=== PATIENT | male | born 1955 | race Caucasian/White ===

== ENCOUNTER 2021-03-03 22:56 | Emergency (ER) | payer MEDICARE, SELFPAY ==
[2021-03-03] VITALS (17 sets, daily range): BP systolic 168–227; BP diastolic 90–125; PULSE 96–105; RESP 16–35; TEMP 37.6; O2SAT 92–96; BMI 32.3
--- NOTE | 2021-03-03 22:58 | DI.CT.S_ITS ---
PROCEDURE: CT STROKE INDICATIONS: stroke x2.5 hours TECHNIQUE: Noncontrast 4.5 mm thick angled axial sections acquired from the foramen magnum to the vertex, with coronal reformats. For radiation dose reduction, the following was used: automated exposure control, adjustment of mA and/or kV according to patient size. COMPARISON: [facility], CT, CT ANGIO HEAD AND NECK, 03/03/2021, 23:01. FINDINGS: Image quality: Excellent. CSF spaces: Basal cisterns are patent. No extra-axial fluid collections. The ventricles are symmetric in size and shape. Brain: No intracranial bleeds or masses. There is cerebral volume loss for age, with resultant ventricular and sulcal prominence. There are periventricular and deep white matter chronic small vessel ischemic changes. There is intracranial internal carotid artery atherosclerosis. Skull and face: Calvarium and visualized facial bones appear intact, without suspicious lesions. Sinuses: Visualized sinuses and mastoids are clear. IMPRESSION: 1. No acute intracranial process. 2. Mild atrophy and chronic microvascular ischemic changes. The above findings are concordant with preliminary report. This study fulfills neurological imaging criteria for inclusion or exclusion of acute stroke therapies based on available published neurological guidelines. Dictated by: Marivel Lowry M.D. on 03/04/2021 at 9:49 Approved by: Marivel Lowry M.D. on 03/04/2021 at 9:50
--- NOTE | 2021-03-03 22:59 | DI.CT.S_ITS ---
PROCEDURE: CT ANGIO HEAD AND NECK INDICATIONS: stroke x2.5 hours TECHNIQUE: After the administration of intravenous contrast, 1 mm thick sections acquired from the aortic arch through the [place]. Post-contrast 4.5 mm thick sections then re-acquired from the foramen magnum to the vertex. 3-dimensional [id number] (MIP) and/or volume rendering reformats were acquired of the central intracranial vasculature and neck separately. COMPARISON: None. FINDINGS: Image quality: Excellent. BRAIN: The ventricular system and cortical sulci demonstrate atrophy, consistent for the patient's stated age. There are areas of hypodensity within the periventricular and subcortical white matter. There is no acute intra-or extra axial fluid collection. No acute hemorrhage, mass lesion or midline shift. Brainstem is unremarkable. Globes are symmetrical. Sinuses are aerated. Osseous structures are intact. HEAD CT ANGIOGRAPHY: Anterior circulation: There is moderate right supraclinoid internal carotid artery stenosis. The flow within the paired anterior cerebral arteries is normal and symmetric. The flow within the middle cerebral arteries is normal and symmetric. The anterior communicating artery is seen. No aneurysms are seen. Posterior circulation: Visualized portions of the vertebral arteries demonstrate normal caliber, and join to form a normal appearing basilar artery. Flow within the posterior cerebral arteries is normal and symmetric. No aneurysms are seen. NECK CT ANGIOGRAPHY: The origins of the left and right common, right internal and bilateral external carotid arteries demonstrate no areas of hemodynamically significant stenosis, vascular occlusion or aneurysmal dilation. There is at least 90% stenosis within the proximal left internal carotid artery approximately 1.6 cm from the danny. Origins of the left and right vertebral arteries demonstrate no areas of hemodynamically significant stenosis, vascular occlusion or aneurysmal dilation. Aortic arch demonstrates conventional anatomy. Limited, visualized portions of the subclavian vasculature are unremarkable. IMPRESSION: 1. No acute intracranial process. 2. Mild atrophy and chronic microvascular ischemic changes. 3. Moderate right supraclinoid internal carotid artery stenosis. 3. Greater than 90% stenosis within the proximal left internal carotid artery. The above findings are concordant with preliminary report. Any quantitative measurements of stenosis were performed using NASCET criteria. Dictated by: Marivel Lowry M.D. on 03/04/2021 at 9:50 Approved by: Marivel Lowry M.D. on 03/04/2021 at 10:07
--- NOTE | 2021-03-03 23:06 | ED_ITS ---
HPI - Neuro Symptoms/Deficit General Chief Complaint: Neuro Symptoms/Deficit Stated Complaint: code stroke Time Seen by Provider: 03/03/21 22:58 History of Present Illness HPI Narrative: 65-year-old male with history of hypertension presents with a chief complaint of sudden-onset right upper and lower extremity numbness and weakness that started about 830 this evening. He states that he 1st noticed it at 8:30 a.m. and then sat back down and waited about a half an hour at which point it was even worse, making it difficult for him to ambulate. At that point he called a friend to bring him here. On his arrival he was activated as a code stroke and taken directly to CT scan. He denies any history of stroke, recent traumas or injuries. He takes no blood thinners. He denies any recent surgeries or problems with bleeding. Related Data Allergies Allergy/AdvReac Type Severity Reaction Status Date / Time No Known Drug Allergies Allergy Verified 03/03/21 23:00 Review of Systems Review of Systems Narrative: GENERAL: Denies chills, fatigue, malaise, fever, sweats. HEENT: Denies sinus pain, ear pain, sore throat, difficulty swallowing, dizziness. RESPIRATORY: Denies dyspnea, cough, wheezing, hemoptysis, sputum. CARDIOVASCULAR: Denies chest pain, palpitations, orthopnea, edema, GASTROINTESTINAL: Denies nausea, vomiting, abdominal pain, diarrhea, constipation, melena. : Denies dysuria, frequency, incontinence, hematuria, urinary retention. MUSCULOSKELETAL: denies weakness, joint pain, or bony pain SKIN: Denies rash, skin lesions, or other NEUROLOGIC: See HPI PSYCHIATRIC: No concerning psychosocial issues. 12 point review of systems is negative except for those stated above Patient History Social History Smoking Status: Never smoker Exam Narrative Exam Narrative: GENERAL: [65] year old patient appears stated age. Well- developed patient, in mild distress. HEAD: Atraumatic. Normocephalic. EYES: Pupils equal round and reactive. Extraocular motions intact. No scleral icterus. No injection or drainage. ENT: Nose without bleeding, purulent drainage. Throat without erythema, tonsillar hypertrophy or exudate. Airway patent. NECK: Trachea midline. Non tender CARDIOVASCULAR: Regular rate and rhythm without murmurs, gallops, or rubs. RESPIRATORY: Clear to auscultation. Breath sounds equal bilaterally. No wheezes, rales, or rhonchi. GASTROINTESTINAL: Abdomen soft, non-tender, nondistended. EXTREMITIES: No edema or joint tenderness. BACK: Nontender without deformity or crepitance. No flank tenderness. NEURO: AOx3. SKIN: No rash or erythema of visible areas Initial Vital Signs Initial Vital Signs: Vital Signs Pulse Rate 97 H 03/03/21 22:56 Respiratory Rate 16 03/03/21 22:56 Scores NIH Stroke Scale Level of Conciousness: Alert, keenly responsive Ask month/age: Answers both questions correctly. Open/close eyes, close hand: Performs both tasks correctly Best gaze horizontal: Normal Visual alatorre: No visual loss Facial palsy: Normal symetrical movement Left arm drift: No drift for full 10 sec Right arm drift: Drifts down, not to bed Left leg drift: No drift for full 5 sec Right leg drift: Drifts down, not to bed Limb ataxia: Absent Sensory on face/arms/legs: Normal, no sensory loss Best language: No aphasia, normal Dysarthria: Mild to mod,some slurring Extinction or inattention: No abnormality Total NIH Stroke scale score: 3 Course Course Course Narrative: tPA (Tissue Plasminogen Activator) Dosing for Stroke Calculator from [employer] on 03/03/2021 All calculations should be rechecked by clinician prior to use RESULT SUMMARY: 9.0 mg Bolus dose, given IV over 1 min 81.0 mg Infusion, given IV over 60 mins 10.0 mg Waste, to be discarded INPUTS: Weight ?> 102 kg tPA Contraindications for Ischemic Stroke from [employer] on 03/03/2021 All calculations should be rechecked by clinician prior to use RESULT SUMMARY: Patient eligible for tPA. INPUTS: Age ?17 ?> 1 = Yes Clinical diagnosis of ischemic stroke causing neurological deficit ?> 1 = Yes Time of symptom onset ?> 1 = Yes Intracranial hemorrhage on CT ?> 0 = No Clinical presentation suggests subarachnoid hemorrhage ?> 0 = No Neurosurgery, head trauma, or stroke in past 3 months ?> 0 = No Uncontrolled hypertension (>185 mmHg SBP or >110 mmHg DBP) ?> 0 = No History of intracranial hemorrhage ?> 0 = No Known intracranial arteriovenous malformation, neoplasm, or aneurysm ?> 0 = No Active internal bleeding ?> 0 = No Suspected/confirmed endocarditis ?> 0 = No Known bleeding diathesis ?> 0 = No Abnormal blood glucose ( ?> 0 = No Only minor or rapidly improving stroke symptoms ?> 0 = No Major surgery or serious non-head trauma in the previous 14 days ?> 0 = No History of gastrointestinal or urinary tract hemorrhage within 21 days ?> 0 = No Seizure at stroke onset ?> 0 = No Recent arterial puncture at a noncompressible site ?> 0 = No Recent lumbar puncture ?> 0 = No Post myocardial infarction pericarditis ?> 0 = No ?> 0 = No Age >80 years ?> 0 = No History of prior stroke and diabetes ?> 0 = No Any active anticoagulant use (even with INR ?> 0 = No NIHSS >25 ?> 0 = No CT shows multilobar infarction (hypodensity >1/3 cerebral hemisphere) ?> 0 = No Additional Information: TPA - bolus 2350, drip 2351 Orders Ordered: ED Orders 03/03/21 22:58 CT Stroke Stat Urine Drug Screen, Rapid Stat EKG-12 Lead Stat 03/03/21 22:59 CT angio head and neck Stat 03/03/21 23:00 Basic Metabolic Panel Stat Complete Blood Count AUTO DIFF Stat Partial Thromboplastin Time Stat Prothrombin Time INR Stat Troponin & CK Cardiac Panel Stat 03/03/21 23:22 COVID19 - ADMIT ([employer] swab/PCR) Stat 03/04/21 01:05 Urinalysis and Microscopic Stat Sodium Chloride (Normal Saline 0.9%) 1,000 mls @ 150 mls/hr IV CONT JEFFY Last Infusion: 03/04/21 03:09 Dose: 0 mls/hr Documented by: Admin: 03/03/21 23:18 Dose: 150 mls/hr Documented by: WILMER Nicardipine HCl 25 mg/ Sodium (Chloride) 250 mls @ 50 mls/hr IV TITRATE JEFFY; Protocol Last Titration: 03/04/21 03:10 Dose: 0 mg/hr, 0 mls/hr Documented by: Titration: 03/04/21 02:31 Dose: 0 mg/hr, 0 mls/hr Documented by: Titration: 03/04/21 02:07 Dose: 3 mg/hr, 30 mls/hr Documented by: Titration: 03/04/21 02:03 Dose: 5 mg/hr, 50 mls/hr Documented by: Titration: 03/04/21 00:46 Dose: 0 mg/hr, 0 mls/hr Documented by: Admin: 03/03/21 23:39 Dose: 5 mg/hr, 50 mls/hr Documented by: YAKELIN Nicardipine HCl 25 mg/ Sodium (Chloride) 250 mls @ 50 mls/hr IV TITRATE JEFFY; Protocol Last Admin: 03/04/21 00:22 Dose: Not Given Documented by: WILMER Discontinued Medications Alteplase, Recombinant (Alteplase 100 Mg Vial) 9 mg IV NOW ONE Stop: 03/03/21 23:28 Last Admin: 03/03/21 23:50 Dose: 9 mg Documented by: WILMER Alteplase, Recombinant (Alteplase 100 Mg Vial) 81 mg IV NOW ONE Stop: 03/03/21 23:28 Last Admin: 03/03/21 23:51 Dose: 81 mg Documented by: WILMER Labetalol HCl (Labetalol 20 Mg/4 Ml Syringe) 20 mg IV NOW ONE Stop: 03/03/21 23:16 Last Admin: 03/03/21 23:18 Dose: 20 mg Documented by: WILMER Reevaluation(s) Reevaluation #1: currently contraindication to TPA given HTN. Labetalol ordered Time: 23:16 Reevaluation #2: Patient has been seen and evaluated at the bedside but tele stroke and sure the opinion that the patient is a candidate for tPA. While mixing tPA blood pressure is rechecked and is now back up to 213/109. Nicardipine drip at 5 ordered, tPA held currently Time: 23:39 Reevaluation #3: Nicardipine given at rate 5. BP 166/98. TPA given Additional Reevaluation(s): 0120 -patient able to stand to use urinal, states right leg noticeably stronger. No headache, blurred vision, nausea or vomiting Consultations Consultation #1: call to Tel[facility]. See his note for details. After performing his exam there was some improvement of symptoms. I suggested we stand the pat ient and get him to try to walk. He nearly fell over. Dr. Baer and I agree that patient would stand high likelihood of life altering neurologic deficit and recommend TPA. Patient consented. Consultation #2: [place] - no beds [place] - no beds [place] - no beds [facility] - no beds, wait listed [place] - no beds, wait listed [place] - no beds [place] - no beds 0050 - call to [facility]. Received call back from [facility] [place] [facility]. Stroke physician in agreement with our evaluation and treatment, requests transfer to /[facility] [place] Vital Signs Vital signs: Vital Signs - 8 hr 03/03/21 22:56 03/03/21 22:59 03/03/21 23:12 Temperature Pulse Rate 97 H 96 H 105 H Respiratory Rate 16 18 Blood Pressure 227/125 H Pulse Oximetry 96 94 03/03/21 23:18 03/03/21 23:21 03/03/21 23:22 Temperature 99.7 F H Pulse Rate 100 H 101 H Respiratory Rate 29 H Blood Pressure 227/125 H 217/112 H Pulse Oximetry 94 03/03/21 23:24 03/03/21 23:25 03/03/21 23:30 Temperature Pulse Rate 100 H 101 H 101 H Respiratory Rate 33 H 27 H 35 H Blood Pressure 178/91 H 173/93 H Pulse Oximetry 93 94 03/03/21 23:35 03/03/21 23:41 03/03/21 23:44 Temperature Pulse Rate 100 H 97 H 98 H Respiratory Rate 32 H 24 26 H Blood Pressure 218/109 H 190/104 H 185/91 H Pulse Oximetry 95 95 94 03/03/21 23:45 03/03/21 23:49 03/03/21 23:50 Temperature Pulse Rate 100 H 101 H 101 H Respiratory Rate 25 H 24 24 Blood Pressure 177/90 H 172/102 H 168/98 H Pulse Oximetry 94 94 94 03/03/21 23:54 03/03/21 23:59 03/04/21 00:00 Temperature 98.9 F Pulse Rate 101 H 102 H Respiratory Rate 28 H 20 Blood Pressure 169/100 H 170/98 H Pulse Oximetry 93 92 03/04/21 00:01 03/04/21 00:15 03/04/21 00:21 Temperature Pulse Rate 101 H 100 H 100 H Respiratory Rate 23 20 Blood Pressure 172/101 H 162/94 H 162/94 H Pulse Oximetry 92 92 03/04/21 00:30 03/04/21 00:45 08/11/21 01:00 Temperature Pulse Rate 100 H 99 H 98 H Respiratory Rate 23 22 24 Blood Pressure 156/88 H 155/88 H 153/90 H Pulse Oximetry 93 92 93 03/04/21 01:15 03/04/21 01:22 03/04/21 01:23 Temperature Pulse Rate 99 H 96 H 97 H Respiratory Rate 25 H 18 20 Blood Pressure 186/96 H 159/89 H 159/89 H Pulse Oximetry 94 94 94 03/04/21 01:30 03/04/21 01:45 03/04/21 02:00 Temperature Pulse Rate 95 H 96 H 97 H Respiratory Rate 20 22 22 Blood Pressure 160/89 H 183/104 H 187/108 H Pulse Oximetry 93 94 95 03/04/21 02:07 03/04/21 02:10 03/04/21 02:15 Temperature Pulse Rate 94 H 94 H 95 H Respiratory Rate 21 20 21 Blood Pressure 154/93 H 157/91 H 158/92 H Pulse Oximetry 93 93 93 03/04/21 02:20 03/04/21 02:25 03/04/21 02:30 Temperature Pulse Rate 96 H 97 H 95 H Respiratory Rate 22 22 21 Blood Pressure 155/88 H 154/93 H 138/88 Pulse Oximetry 92 93 91 03/04/21 02:35 03/04/21 02:40 03/04/21 02:45 Temperature Pulse Rate 94 H 93 H 93 H Respiratory Rate 22 20 21 Blood Pressure 130/83 141/89 H 142/90 H Pulse Oximetry 92 92 93 03/04/21 02:50 03/04/21 03:00 Temperature Pulse Rate 92 H 96 H Respiratory Rate 20 20 Blood Pressure 143/89 H 180/91 H Pulse Oximetry 93 95 MDM - Neuro Symptoms/Deficit Lab Data Result diagrams: 03/03/21 23:00 03/03/21 23:00 Labs: Lab Results 03/03/21 03/03/21 03/03/21 Range/Units 23:00 23:00 23:00 WBC 9.3 (4.5-11.0) X10^3/uL RBC 5.29 (4.5-5.9) X10^6/uL Hgb 16.1 (13.5-17.5) g/dL Hct 47.2 (41-53) % MCV 89.3 (80-100) fL MCH 30.5 (26-34) PG MCHC 34.1 (30-36) % RDW 12.9 (11.6-14.8) % Plt Count 200 (150-400) X10^3/uL Neut % (Auto) 57.2 (50-75) % Lymph % (Auto) 28.1 (25-40) % [place] % (Auto) 12.0 (3-14) % Eos % (Auto) 1.7 L (2-4) % Baso % (Auto) 1.0 (0-2) % Neut # (Auto) 5300 (3822-2788) /uL Lymph # (Auto) 2600 (5873-3520) /uL [place] # (Auto) 1100 H (0-900) /uL Eos # (Auto) 200 (0-450) /uL Baso # (Auto) 100 (0-100) /uL PT 11.6 (10.1-12.7) SECONDS INR 1.0 (0.9-1.3) APTT 37 H (26.4-36.2) SECONDS Sodium 138 (137-145) mmol/L Potassium 3.4 (3.4-5.1) mmol/L Chloride 101 (98-107) mmol/L Carbon Dioxide 25 (22-32) mmol/L BUN 16 (9-20) mg/dL Creatinine 0.98 (0.66-1.25) mg/dL Estimated GFR > 60.0 (>60) mL/min BUN/Creatinine Ratio 16.3 (6-22) Glucose 177 H (80-110) mg/dL Calcium 9.1 (8.4-10.2) mg/dL Total Creatine Kinase 123 (55-170) U/L CK-MB (CK-2) 1.45 (<2.37) ng/mL CK-MB (CK-2) Rel Index 1.2 L (1.5-5.0) % Troponin I < 0.012 (0.01-0.034) ng/mL Urine Color Urine Appearance Urine pH (4.5-8.0) Ur Specific [place] (1.000-1.035) Urine Protein (Negative) Urine Glucose (UA) (Negative) g/dL Urine Ketones (NEGATIVE) Urine Occult Blood (Negative) Urine Nitrate (Negative) Urine Bilirubin (NEGATIVE) Urine Urobilinogen (0.2) E.U./dL Ur Leukocyte Esterase (NEGATIVE) Urine RBC (0-5/HPF) Urine WBC (0-5/HPF) Urine Bacteria (None) Ur Culture Indicated? Micro UA Comment U Opiates 300ng/mL cut (Negative) Ur Oxycodone Screen (Negative) Urine Methadone Screen (Negative) Ur Barbiturates Screen (Negative) U Tricyclic Antidepress (Negative) Ur Phencyclidine Scrn (Negative) Ur Amphetamines Screen (Negative) U Methamphetamines Scrn (Negative) Ur MDMA Scrn (Ecstasy) (Negative) U Benzodiazepines Scrn (Negative) Urine Cocaine Screen (Negative) U Marijuana (THC) Screen (Negative) SARS-CoV-2 (PCR) (Negative) 03/03/21 03/04/21 03/04/21 Range/Units 23:22 01:05 01:05 WBC (4.5-11.0) X10^3/uL RBC (4.5-5.9) X10^6/uL Hgb (13.5-17.5) g/dL Hct (41-53) % MCV (80-100) fL MCH (26-34) PG MCHC (30-36) % RDW (11.6-14.8) % Plt Count (150-400) X10^3/uL Neut % (Auto) (50-75) % Lymph % (Auto) (25-40) % [place] % (Auto) (3-14) % Eos % (Auto) (2-4) % Baso % (Auto) (0-2) % Neut # (Auto) (4860-6737) /uL Lymph # (Auto) (2084-2164) /uL [place] # (Auto) (0-900) /uL Eos # (Auto) (0-450) /uL Baso # (Auto) (0-100) /uL PT (10.1-12.7) SECONDS INR (0.9-1.3) APTT (26.4-36.2) SECONDS Sodium (137-145) mmol/L Potassium (3.4-5.1) mmol/L Chloride (98-107) mmol/L Carbon Dioxide (22-32) mmol/L BUN (9-20) mg/dL Creatinine (0.66-1.25) mg/dL Estimated GFR (>60) mL/min BUN/Creatinine Ratio (6-22) Glucose (80-110) mg/dL Calcium (8.4-10.2) mg/dL Total Creatine Kinase (55-170) U/L CK-MB (CK-2) (<2.37) ng/mL CK-MB (CK-2) Rel Index (1.5-5.0) % Troponin I (0.01-0.034) ng/mL Urine Color Yellow Urine Appearance Clear Urine pH 7.0 (4.5-8.0) Ur Specific [place] <=1.005 (1.000-1.035) Urine Protein Negative (Negative) Urine Glucose (UA) Negative (Negative) g/dL Urine Ketones Negative (NEGATIVE) Urine Occult Blood Negative (Negative) Urine Nitrate Negative (Negative) Urine Bilirubin Negative (NEGATIVE) Urine Urobilinogen 0.2 (0.2) E.U./dL Ur Leukocyte Esterase Negative (NEGATIVE) Urine RBC None seen (0-5/HPF) Urine WBC None seen (0-5/HPF) Urine Bacteria None seen (None) Ur Culture Indicated? Cult not indicated Micro UA Comment Microscopic normal U Opiates 300ng/mL cut Negative (Negative) Ur Oxycodone Screen Negative (Negative) Urine Methadone Screen Negative (Negative) Ur Barbiturates Screen Negative (Negative) U Tricyclic Antidepress Negative (Negative) Ur Phencyclidine Scrn Negative (Negative) Ur Amphetamines Screen Negative (Negative) U Methamphetamines Scrn Negative (Negative) Ur MDMA Scrn (Ecstasy) Negative (Negative) U Benzodiazepines Scrn Negative (Negative) Urine Cocaine Screen Negative (Negative) U Marijuana (THC) Screen Negative (Negative) SARS-CoV-2 (PCR) Negative (Negative) Imaging Data CT scan - head: My Impression: NAP - no bleed Radiologist's Impression: No bleed CTA Head/Neck: Radiologist's Impression: 90% stenosis L carotid bulb Focal moderate right supraclinoid internal carotid artery stenosis Critical Care Time Critical Care Time Critical Care Time: Yes Total Critical Care Time: 60 Attestation: The high probability of a clinically significant, sudden or life threatening deterioration of the [Neuro/CV] system(s) required my full and direct attention, intervention and personal management. The aggregate critical care time was [60] minutes. This time is in addition to time spent performing reported procedures but includes the following: [x] Data Review and interpretation [x] Patient assessment and monitoring of vital signs [x] Documentation [x] Medication orders and management Discharge Plan [facility]arture [facility] Clinical Impression: Cerebrovascular accident, Received intravenous tissue plasminogen activator (tPA) in emergency department
[2021-03-03 23:08] LABS: Add Manual Diff / Slide Review NO; Basophils Absolute Auto 100 /uL (0-100); Eosinophils Absolute Auto 200 /uL (0-450); Eosinophils Percent Auto 1.7 % (2-4); Hematocrit 47.2 % (41-53); Hemoglobin 16.1 g/dL (13.5-17.5); Lymphocytes Absolute Auto 2600 /uL (1100-4500); Lymphocytes Percent Auto 28.1 % (25-40); Mean Corpuscular HGB Conc 34.1 % (30-36); Mean Corpuscular Hemoglobin 30.5 PG (26-34); Mean Corpuscular Volume 89.3 fL (80-100); Monocytes Absolute Auto 1100 /uL (0-900); Neutrophils Absolute Auto 5300 /uL (1500-7000); Neutrophils Percent Auto 57.2 % (50-75); Platelet Count 200 X10^3/uL (150-400); Red Blood Cell Count 5.29 X10^6/uL (4.5-5.9); Red Cell Distribution Width 12.9 % (11.6-14.8); White Blood Cell Count 9.3 X10^3/uL (4.5-11.0)
[2021-03-03 23:18] LABS: Prothrombin Time 11.6 SECONDS (10.1-12.7)
[2021-03-03] MEDS: LABETALOL 20 MG/4 ML SYRINGE IV (23:18)
[2021-03-03] MEDS: SODIUM CHLORIDE 0.9% 1,000 ML 150 ML IV (23:18)
[2021-03-03 23:20] LABS: PTT Partial Thromboplastin Tim 37 SECONDS (26.4-36.2)
[2021-03-03 23:22] LABS: BUN Creatinine Ratio 16.3 (6-22); Blood Urea Nitrogen 16 mg/dL (9-20); Calcium 9.1 mg/dL (8.4-10.2); Carbon Dioxide 25 mmol/L (22-32); Chloride 101 mmol/L (98-107); Creatine Kinase 123 U/L (55-170); Estimated Glomerular Filt Rate > 60.0 mL/min (>60); Glucose 177 mg/dL (80-110); Potassium 3.4 mmol/L (3.4-5.1); Sodium 138 mmol/L (137-145)
[2021-03-03 23:34] LABS: Troponin I < 0.012 ng/mL (0.01-0.034)
[2021-03-03 23:37] LABS: CKMB % Relative Index 1.2 % (1.5-5.0); Creatine Kinase MB 1.45 ng/mL (<2.37); HEMOLYSIS 23 (0-50)
[2021-03-03] MEDS: NICARDIPINE 25 MG in SODIUM CHLORIDE 0.9% 240 ML 50 ML IV (23:39)
--- NOTE | 2021-03-03 23:45 | PC.NURSE ---
Pt stroke symptoms baseline, reports heaviness/numbness in right arm and hand,weakness in right leg. Nicardipine drip started and preparing TPA.
[2021-03-03] MEDS: ALTEPLASE 100 MG VIAL 9 MG IV (23:50)
[2021-03-03] MEDS: ALTEPLASE 100 MG VIAL 81 MG IV (23:51)
[2021-03-04] VITALS (25 sets, daily range): BP systolic 130–187; BP diastolic 83–108; PULSE 92–101; RESP 18–25; TEMP 37.2; O2SAT 91–96
[2021-03-04 00:29] LABS: COVID19 - ADMIT (NP swab/PCR) Negative (Negative)
--- NOTE | 2021-03-04 00:47 | PC.NURSE ---
BP 155/88, notified, verbal to stop Nicardipine drip.
--- NOTE | 2021-03-04 00:50 | PC.NURSE ---
TPA infused. Pt reports slight numbness only in my fingertips now and right arm heaviness almost resolved. Pt stood up to bedside to use urinal and reports right leg feeling much stronger than upon admission.
[2021-03-04 01:26] LABS: Bacteria Urine None Seen; RBC Urine None Seen (0-5/HPF); WBC Urine None Seen (0-5/HPF)
[2021-03-04 01:28] LABS: Appearance Urine UA CLEAR; Bilirubin Urine UA NEGATIVE (NEGATIVE); Color Urine UA YELLOW; Glucose Urine UA NEGATIVE (Negative); Ketones Urine UA NEGATIVE (NEGATIVE); Leukocyte Esterase Urine UA NEGATIVE (NEGATIVE); Nitrite Urine UA NEGATIVE (Negative); Occult Blood Urine UA NEGATIVE (Negative); Protein Urine UA NEGATIVE (Negative); Specific Gravity Urine UA <=1.005 (1.000-1.035); Urobilinogen Urine UA 0.2 E.U./dL (0.2)
[2021-03-04 01:31] LABS: UR Morphine/Opiate cutoff 300 Negative (Negative); Ur Creatinine Normal (Normal); Ur Specific Gravity Normal (Normal); Urine Amphetamines Negative (Negative); Urine Barbiturates Negative (Negative); Urine Benzodiazepines Negative (Negative); Urine Cocaine Negative (Negative); Urine MDMA Negative (Negative); Urine Methadone Negative (Negative); Urine Methamphetamines Negative (Negative); Urine Oxycodone Negative (Negative); Urine Phencyclidine Negative (Negative); Urine Tetrahydrocannabinol Negative (Negative); Urine Tricyclic Antidepressant Negative (Negative); Urine pH Normal (Normal)
[2021-03-04 01:34] LABS: Culture Indicated Urine Cult Not Indicated; Urine Comments Microscopic Normal
== END 2021-03-04 03:18 | disposition short-term general hospital (02) ==
PROVIDERS: Emergency Provider Emergency Medicine
DX: I63.9 Cerebral infarction, unspecified (principal); Z92.82 Status post administration of tPA (rtPA) in a different facility within the last 24 hours prior to admission to current facility; Z20.822 Contact with and (suspected) exposure to COVID-19
CPT/HCPCS: 36415; 70450; 70496; 70498; 80048; 80305; 81001; 82550; 82553; 84484; 85025; 85610; 85730; 87635; 93005; 96361; 96365; 96375; 99285; 99291; 99292; C9803; Q3014; J2997; Q9967

== ENCOUNTER → 2021-04-20 07:46 | Outpatient (CLI) | payer MEDICARE, SELFPAY ==
--- NOTE | 2021-04-20 | DI.US.S_ITS ---
PROCEDURE: US ABD AORTA ANEURYSM SCREEN INDICATIONS: HISTORY OF SMOKING TECHNIQUE: Real time scanning was performed of the aorta and iliac arteries, with image documentation. COMPARISON: None. FINDINGS: Aorta: Proximal aorta is not well seen secondary to overlying bowel gas. Mid-aorta measures 2.5 cm. Distal aortic diameter is 1.6 cm. Minimal scattered plaque. Iliac arteries: Right common iliac artery measures 1.2 cm. Left common iliac artery measures 1.2 cm. IMPRESSION: No aneurysmal dilation. Proximal aorta is not well seen. Dictated by: Marivel Lowry M.D. on 04/20/2021 at 10:23 Approved by: Marivel Lowry M.D. on 04/20/2021 at 10:23
== END ==
PROVIDERS: PCP Student in an Organized Health Care Education/Training Program; Referring Provider Student in an Organized Health Care Education/Training Program; Visit Provider Student in an Organized Health Care Education/Training Program
DX: Z13.6 Encounter for screening for cardiovascular disorders (principal); Z87.891 Personal history of nicotine dependence
CPT/HCPCS: 76706

== ENCOUNTER → 2023-12-07 16:24 | Outpatient (CLI) | payer MEDICARE, SELFPAY ==
--- NOTE | 2023-12-07 16:25 | DI.US.S_ITS ---
PROCEDURE: US ABDOMEN LIMITED INDICATIONS: ELEVATED LFTS TECHNIQUE: Real-time scanning was performed of the abdominal and retroperitoneal organs, with image documentation. COMPARISON: None. FINDINGS: Liver: Liver is normal in size and homogeneous in echotexture. There is increased hepatic echogenicity. Gallbladder: No gallstones. No wall thickening. No pericholecystic edema. Negative sonographic Amaya's sign. Biliary ducts: Intrahepatic bile ducts are non-dilated. Extrahepatic bile duct caliber measures 4 mm. Normal is 6-7 mm or less in diameter, or 10 mm or less post-cholecystectomy. Pancreas: Not well visualized. Miscellaneous: No free abdominal fluid. IMPRESSION: Increased hepatic echogenicity noted possibly related to hepatic steatosis but other sources of hepatocellular disease cannot be excluded. Recommend clinical correlation. Approved by: Yennifer Garcia M.D.,Ph.D. on 12/08/2023 at 9:41
== END ==
LOC: US 16:25
PROVIDERS: PCP Student in an Organized Health Care Education/Training Program; Referring Provider Student in an Organized Health Care Education/Training Program; Visit Provider Student in an Organized Health Care Education/Training Program
DX: R74.8 Abnormal levels of other serum enzymes (principal)
CPT/HCPCS: 76705